=== PATIENT | female | born 1985 | race African-American/Black ===

== ENCOUNTER 2016-11-28 09:09 | Emergency (ER) | payer OTHER ==
[~2016-11-28] VITALS: Ht 160 cm; Wt 75.0 kg
[2016-11-28 10:38] VITALS: BP 103/62
[2016-11-28 11:12] LABS: BASOPHILS # (AUTO) 0.01 K/uL (0.00-0.20); BASOPHILS % (AUTO) 0.2 % (0.0-2.0); EOSINOPHILS # (AUTO) 0.07 K/uL (0.00-0.70); EOSINOPHILS % (AUTO) 1.66 % (1.0-6.0); HEMATOCRIT 33.8 % (36-46); HEMOGLOBIN 10.9 g/dL (12.0-16.0); LYMPHOCYTES # (AUTO) 1.3 K/uL (1.0-4.8); MEAN CORPUSCULAR HEMOGLOBIN 25.6 pg (26.0-34.0); MEAN CORPUSCULAR HGB CONC 32.2 G/dL (31.0-37.0); MEAN CORPUSCULAR VOLUME 80 fL (80-100); MONOCYTES # (AUTO) 0.2 K/uL (0.1-1.0); MONOCYTES % (AUTO) 5.7 % (2.0-9.0); NEUTROPHILS # (AUTO) 2.6 K/uL (1.8-7.7); NEUTROPHILS % (AUTO) 61.4 % (40.0-70.0); PLATELET COUNT (AUTO) 306 K/uL (150-450); RED BLOOD CELL COUNT(AUTO) 4.25 MIL/uL (4.00-5.20); RED CELL DISTRIBUTION WIDTH 17.4 % (11.5-14.5); WHITE BLOOD COUNT (AUTO) 4.3 K/uL (4.5-11.0)
[2016-11-28 11:23] LABS: APPEARANCE,URINE CLOUDY (CLEAR); GLUCOSE, URINE (UA) NEGATIVE (NEGATIVE); KETONES,URINE NEGATIVE (NEGATIVE); LEUKOCYTE ESTERASE ,URINE SMALL (NEGATIVE); OCCULT BLOOD,URINE NEGATIVE (NEGATIVE); PROTEIN,URINE NEGATIVE (NEGATIVE)
[2016-11-28 11:27] LABS: ADD UA MICROSCOPIC YES
[2016-11-28 11:27] LABS: ANION GAP 7 mmol/L (8-16); CALCIUM, TOTAL 8.4 mg/dL (8.8-10.5); CARBON DIOXIDE 24 mmol/L (22-29); CHLORIDE 107 mmol/L (98-107); CREATININE 0.87 mg/dL (0.60-1.30); GLOMERULAR FILTR. RATE CALC > 60 mL/min (>60); POTASSIUM 4.1 mmol/L (3.5-5.1); SODIUM SERUM 138 mmol/L (136-145); UREA NITROGEN, BLOOD 10 mg/dL (7-18)
[2016-11-28 11:29] LABS: RBC,URINE None Seen /HPF (0-2)
[2016-11-28 11:30] LABS: SQUAMOUS EPITHELIAL CELL,UR Many /LPF (None Seen)
[2016-11-28 11:39] LABS: ALANINE AMINOTRANSFERASE 14 U/L (12-78); ALBUMIN 3.4 g/dL (3.4-5.0); ASPARTATE AMINOTRANSFERASE 15 U/L (15-37); BILIRUBIN,TOTAL 0.3 mg/dL (0.1-1.0); TOTAL PROTEIN, SERUM 6.8 g/dL (6.4-8.2)
[2016-11-28 11:45] LABS: RBC MORPHOLOGY COMMENT ABNORMAL RBC MORPH
== END 2016-11-28 11:59 | disposition home or self-care (01) ==
LOC: EMS 09:11
DX: N39.0 Urinary tract infection, site not specified (principal); Z88.8 Allergy status to other drugs, medicaments and biological substances
CPT/HCPCS: 99284

== ENCOUNTER 2017-02-11 17:31 | Emergency (ER) | payer OTHER ==
[~2017-02-11] VITALS: Ht 162.6 cm; Wt 75.0 kg
[2017-02-11] MEDS ORDERED: ALBU8HFA IH (17:47)
[2017-02-11] MEDS ORDERED: IPRATROPIUM BROMIDE 0.5 MG/2.5 ML NEB SOLUTION NEB ONE (18:15)
[2017-02-11] MEDS ORDERED: ALBUTEROL SULFATE 2.5 MG/0.5 ML NEB SOLUTION NEB ONE (18:15)
[2017-02-11] MEDS ORDERED: PredniSONE 20 MG TABLET PO ONE (18:15)
[2017-02-11] MEDS ORDERED: ALBUTEROL SULFATE HFA 90 MCG/PUFF 8 GM INHALER IH ONE (18:15)
[2017-02-11 18:24] VITALS: BP 110/65
== END 2017-02-11 19:42 | disposition home or self-care (01) ==
LOC: EMS 17:32
DX: J45.909 Unspecified asthma, uncomplicated (principal); F17.210 Nicotine dependence, cigarettes, uncomplicated; N83.209 Unspecified ovarian cyst, unspecified side
CPT/HCPCS: 81025; 94640; 99284; J7512; J3535

== ENCOUNTER 2017-09-18 08:09 | Emergency (ER) | payer MEDICAID, OTHER ==
[~2017-09-18] VITALS: Ht 162.6 cm; Wt 68.2 kg
[~2017-09-18 08:09] MED LIST: ALBU8HFA IH
[2017-09-18 08:14] VITALS: BP 119/70
[2017-09-18] MEDS ORDERED: ALBUTEROL SULFATE HFA 90 MCG/PUFF 8 GM INHALER IH ONE (09:15)
[2017-09-18] MEDS ORDERED: IBUPROFEN 600 MG TABLET PO ONE (09:15)
== END 2017-09-18 09:33 | disposition home or self-care (01) ==
LOC: EMS 08:11
DX: R07.89 Other chest pain (principal); J45.909 Unspecified asthma, uncomplicated; M54.6 Pain in thoracic spine; F17.210 Nicotine dependence, cigarettes, uncomplicated; Z88.8 Allergy status to other drugs, medicaments and biological substances
CPT/HCPCS: 93005; 94640; 99283; J3535

== ENCOUNTER 2017-11-22 08:46 | Emergency (ER) | payer MEDICAID ==
[~2017-11-22] VITALS: Ht 162.6 cm; Wt 68.0 kg
[2017-11-22] MEDS ORDERED: ALBUTEROL SULFATE HFA 90 MCG/PUFF 8 GM INHALER IH ONE (09:45)
[2017-11-22 10:06] VITALS: BP 101/64
== END 2017-11-22 10:13 | disposition home or self-care (01) ==
LOC: EMS 08:48
DX: J45.901 Unspecified asthma with (acute) exacerbation (principal); F17.210 Nicotine dependence, cigarettes, uncomplicated; Z87.42 Personal history of other diseases of the female genital tract; Z88.8 Allergy status to other drugs, medicaments and biological substances; Z79.899 Other long term (current) drug therapy
CPT/HCPCS: 99283; J3535

== ENCOUNTER 2018-08-27 14:02 | Emergency (ER) | payer SELFPAY ==
[~2018-08-27] VITALS: Ht 162.6 cm; Wt 68.0 kg
[2018-08-27] MEDS ORDERED: FLUCONAZOLE 150 MG TABLET PO ONE (15:45)
[2018-08-27 15:58] VITALS: BP 139/61
== END 2018-08-27 16:30 | disposition home or self-care (01) ==
LOC: EMS 14:03
DX: N76.0 Acute vaginitis (principal); F17.210 Nicotine dependence, cigarettes, uncomplicated; J45.909 Unspecified asthma, uncomplicated; Z88.8 Allergy status to other drugs, medicaments and biological substances
CPT/HCPCS: 99406